=== PATIENT | female | born 1980 | race Caucasian/White ===

== ENCOUNTER 2023-06-21 03:28 | Day surgery (SDC) | payer MEDICAID | END 2023-06-21 09:22 | disposition home or self-care (01) | LOC: DS 03:28 | PROVIDERS: ATTEND Internal Medicine | PROC: 0PST04Z Reposition Right Finger Phalanx with Internal Fixation Device, Open Approach (ICD-10-PCS; principal; 2023-06-21) | DX: S62.631A Displaced fracture of distal phalanx of left index finger, initial encounter for closed fracture (principal); W18.11XA Fall from or off toilet without subsequent striking against object, initial encounter; Y93.89 Activity, other specified; Y92.012 Bathroom of single-family (private) house as the place of occurrence of the external cause | CPT/HCPCS: 36415; 85652-TC ==